=== PATIENT | female | born 1975 | race Caucasian/White ===

== ENCOUNTER 2018-04-11 12:28 | Observation (INO) | payer BC ==
--- NOTE | 2018-04-11 13:14 | EDPHY ---
H & P Stated Complaint: upper abdominal pain, pain below ribs HPI/ROS: HPI CHIEF COMPLAINT: [ ] HISTORY OF PRESENT ILLNESS: [Need 4: Location, Duration, Severity, Quality, Context, Timing Modifying Factors, Associated S&S] Past Medical History: Past Surgical History: Social History: Family History: ROS REVIEW OF SYSTEMS: 10 Systems were reviewed and negative with the exception of the elements mentioned in the history of present illness. Exam Constitutional triage nursing summary reviewed, vital signs reviewed, awake/ alert. Eyes normal conjunctivae and sclera, EOMI, PERRLA. HENT normal inspection, atraumatic, moist mucus membranes, no epistaxis, neck supple/ no meningismus, no raccoon eyes. Respiratory clear to auscultation bilaterally, normal breath sounds, no respiratory distress, no wheezing. Cardiovascular rate normal, regular rhythm, no murmur, no edema, distal pulses normal. Gastrointestinal soft, non-tender, no rebound, no guarding, normal bowel sounds, no distension, no pulsatile mass. Genitourinary no CVA tenderness. Musculoskeletal no midline vertebral tenderness, full range of motion, no calf swelling, no tenderness of extremities, no meningismus, good pulses, neurovascularly intact. Skin pink, warm, & dry, no rash, skin atraumatic. Neurologic awake, alert and oriented x 3, AAOx3, moves all 4 extremities equally, motor intact, sensory intact, CN II-XII intact, normal cerebellar, normal vision, normal speech. Psychiatric normal mood/affect. Heme/Lymph/Immune no lymphadenopathy. Differential Diagnosis: Medical Decision Making: Re-evaluation: Source: Patient - Personal History LMP (Females 10-55): Irregular Current Tetanus/Diphtheria Vaccine: Yes Current Tetanus Diphtheria and Acellular Pertussis (TDAP): Yes - Medical/Surgical History Hx Asthma: No Hx Chronic Respiratory Disease: No Hx Diabetes: No Hx Cardiac Disease: No Hx Renal Disease: No Hx Cirrhosis: No Hx Alcoholism: No Hx HIV/AIDS: No Hx Splenectomy or Spleen Trauma: No - Social History Smoking Status: Never smoked Constitutional: Initial Vital Signs Temperature (C) 36.5 C 04/11/18 12:32 Heart Rate 55 L 04/11/18 12:32 Respiratory Rate 16 04/11/18 12:32 Blood Pressure 106/51 L 04/11/18 12:32 O2 Sat (%) 98 04/11/18 12:32 O2 Delivery Mode Room Air Allergies/Adverse Reactions: No Known Allergies Allergy (Verified 05/20/12 08:47) Home Medications: Medication Instructions Recorded Miscellaneous Medical Supply [NO 1 ea MISC AD 05/20/12 HOME MEDS] Medical Decision Making - Data Points Laboratory Results: 04/11/18 13:06 POC Hgb 17.0 gm/dL H gm/dL (12.6-16.3) POC Hct 50 % H % (38-47) POC Sodium 144 mEq/L mEq/L (135-145) POC Potassium 3.8 mEq/L mEq/L (3.3-5.0) POC Chloride 106 mEq/L mEq/L (97-110) POC BUN 19 mg/dL mg/dL (7-23) POC Creatinine 0.9 mg/dL mg/dL (0.6-1.0) POC Glucose 84 mg/dL mg/dL (70-100) Point of Care Test Results: Chemistry 04/11/18 13:06 POC Sodium 144 mEq/L mEq/L (135-145) POC Potassium 3.8 mEq/L mEq/L (3.3-5.0) POC Chloride 106 mEq/L mEq/L (97-110) POC BUN 19 mg/dL mg/dL (7-23) POC Creatinine 0.9 mg/dL mg/dL (0.6-1.0) POC Glucose 84 mg/dL mg/dL (70-100) ISTAT H&H 04/11/18 13:06 POC Hgb 17.0 gm/dL H gm/dL (12.6-16.3) POC Hct 50 % H % (38-47) Departure - Departure Referrals: Chiqui Smith MD [Primary Care Provider] - As per Instructions
[2018-04-11] MEDS ORDERED: KETOROLAC 15 MG/1 ML SDV IVP ONE (13:15)
--- NOTE | 2018-04-11 13:19 | EDPHY ---
H & P Stated Complaint: upper abdominal pain, pain below ribs Time Seen by Provider: 04/11/18 13:15 HPI/ROS: CHIEF COMPLAINT: Abdominal pain since this morning HISTORY OF PRESENT ILLNESS: 42-year-old female with no history of abdominal surgeries complaining of bilateral upper quadrant abdominal pain since 8:00 a.m. Today. No nausea or vomiting. Bowel movements normal. No trauma. No urinary abnormality. No fever no chills. No trauma. No urinary abnormality. REVIEW OF SYSTEMS: 10 systems reviewed and negative with the exception of the elements mentioned in the history of present illness PAST MEDICAL & SURGICAL HISTORY: No history of abdominal surgeries SOCIAL HISTORY: Nonsmoker PHYSICAL EXAM (Prior to examination, patient consented to physical exam, hands were washed and my usual and customary physical exam procedures followed) 1) GENERAL: Well-developed, well-nourished, alert and oriented. Appears uncomfortable, sitting upright on the bed leaning against her , hesitant to lay down 2) HEAD: Normocephalic, atraumatic 3) HEENT: Pupils equal, round, reactive to light bilaterally. Sclera anicteric. Nasopharynx, oropharynx, clear, no lesions. Moist mucous membranes. Ears bilaterally with normal tympanic membranes. 4) NECK: Full range of motion, no meningeal signs. 5) LUNGS: Clear auscultation bilaterally, no wheezes, no rhonchi, no retractions. 6) HEART: Regular rate and rhythm, no murmur, no heave, no gallop. 7) ABDOMEN: guarding abdomen, flat, diffusely tender to palpation all quadrants. , 8) MUSCULOSKELETAL: Moving all extremities, no focal areas of tenderness, no obvious trauma. No peripheral edema or discoloration. 9) BACK: No CVA tenderness, no midline vertebral tenderness, no fluctuance, no step-off, no obvious trauma, no visual or palpable abnormality. 10) SKIN: No rash, no petechiae. 11) Psychiatric: Patient is oriented X 3, there is no agitation. DIFFERENTIAL DIAGNOSIS: My differential diagnosis includes, but is not limited to, acute appendicitis, acute cholecystitis, bowel obstruction, acute pancreatitis, ovarian torsion, ectopic , gastritis, constipation The patient understands that this diagnosis is provisional and can never be 100% accurate. This is a partial list of diagnoses considered. These considerations are based on history, physical exam, past history and reassessment. - Personal History LMP (Females 10-55): Irregular Current Tetanus/Diphtheria Vaccine: Yes Current Tetanus Diphtheria and Acellular Pertussis (TDAP): Yes - Medical/Surgical History Hx Asthma: No Hx Chronic Respiratory Disease: No Hx Diabetes: No Hx Cardiac Disease: No Hx Renal Disease: No Hx Cirrhosis: No Hx Alcoholism: No Hx HIV/AIDS: No Hx Splenectomy or Spleen Trauma: No - Social History Smoking Status: Never smoked Constitutional: Initial Vital Signs Temperature (C) 36.5 C 04/11/18 12:32 Heart Rate 55 L 04/11/18 12:32 Respiratory Rate 16 04/11/18 12:32 Blood Pressure 106/51 L 04/11/18 12:32 O2 Sat (%) 98 04/11/18 12:32 O2 Delivery Mode Room Air Allergies/Adverse Reactions: No Known Allergies Allergy (Verified 05/20/12 08:47) Home Medications: Medication Instructions Recorded Miscellaneous Medical Supply [NO 1 ea MISC AD 05/20/12 HOME MEDS] Peg 3350/Na Sulf,Bicarb,Cl/KCl 1,000 ml PO ONCE #4000 ml 04/11/18 [Golytely (RX)] Medical Decision Making - Diagnostics Imaging Results: Imaging Impressions Abdomen CT 04/11/18 13:15 Impression: No CT findings for appendicitis. Long segment of colitis in the sigmoid colon. Severe constipation proximal to this throughout the colon and fecalization of stool in the distal ileum. Results called and discussed with Rodney Flores PA-C on April 11, 2018 at 1505 hours. Images reviewed myself ED Course/Re-evaluation: 1:20 p.m.: Patient declining opiate analgesia. Will obtain diagnostic studies. Will plan on CT imaging. 2:00 p.m.: Re-evaluation, awaiting chemistry and CT. She continues to complain of pain. Once again offered medication beyond the Toradol and she declines. 3:30 p.m.: Re-evaluation. Discussed her imaging. She is asymptomatic. Smiling. Sitting upright. 4:30 p.m.: Re-evaluation. Patient is sitting upright, smiling, drinking juice , laughing, appears well. She has no complaints of pain or discomfort. I discussed her imaging and reviewed her imaging results with her and her on numerous instances. The patient was also seen examined by Dr. Moreno Pittman in the ER. We discussed her colitis findings in the importance of following up with Gastroenterology. This referral has been provided to her. Have offered hospital admission however states that she would like to go home. I will plan on discharging her with medication for constipation. 5:05 p.m.: Patient has been re-evaluated with multiple serial exams in the ER. She continues to feel progressively better while in the ER, heart rate in the 50s. Of note however is her blood pressure which has trended progressively downward. Specifically why the patient's blood pressure is trending down or is incompletely clear at this time. I recommended admission. The patient was initially declining admission. Dr. Moreno Pittman spoke with the patient her as well. Patient is agreeable ultimately with admission 5:22 p.m.: Consultation Dr. Wade Grant who will admit patient - Data Points Laboratory Results: Laboratory Results 04/11/18 13:00 04/11/18 13:00 04/11/18 04/11/18 04/11/18 13:06 13:00 13:00 WBC RBC Hgb POC Hgb 17.0 gm/dL H gm/dL (12.6-16.3) Hct POC Hct 50 % H % (38-47) MCV MCH MCHC RDW Plt Count MPV Neut % (Auto) Lymph % (Auto) [place] % (Auto) Eos % (Auto) Baso % (Auto) Nucleat RBC Rel Count Absolute Neuts (auto) Absolute Lymphs (auto) Absolute Monos (auto) Absolute Eos (auto) Absolute Basos (auto) Absolute Nucleated RBC Immature Gran % Immature Gran # POC Sodium 144 mEq/L mEq/L (135-145) Sodium 139 mEq/L mEq/L (135-145) POC Potassium 3.8 mEq/L mEq/L (3.3-5.0) Potassium 4.1 mEq/L mEq/L (3.5-5.2) POC Chloride 106 mEq/L mEq/L (97-110) Chloride 106 mEq/L mEq/L (97-110) Carbon Dioxide 19 mEq/l L mEq/l (22-31) Anion Gap 14 mEq/L mEq/L (6-14) POC BUN 19 mg/dL mg/dL (7-23) BUN 20 mg/dL mg/dL (7-23) Creatinine 0.8 mg/dL mg/dL (0.6-1.0) POC Creatinine 0.9 mg/dL mg/dL (0.6-1.0) Estimated GFR > 60 Glucose 84 mg/dL mg/dL (70-100) POC Glucose 84 mg/dL mg/dL (70-100) Calcium 10.0 mg/dL mg/dL (8.5-10.4) Total Bilirubin 1.9 mg/dL H mg/dL (0.1-1.4) Conjugated Bilirubin 0.7 mg/dL H mg/dL (0.0-0.5) Unconjugated Bilirubin 1.2 mg/dL H mg/dL (0.0-1.1) AST 40 IU/L IU/L (14-46) ALT < 6 IU/L L IU/L (9-52) Alkaline Phosphatase 97 IU/L IU/L (38-126) Total Protein 7.9 g/dL g/dL (6.3-8.2) Albumin 4.8 g/dL g/dL (3.5-5.0) Lipase 99 IU/L IU/L (23-300) Beta HCG, Qual NEGATIVE Specimen Hemolysis 118 04/11/18 13:00 WBC 6.58 10^3/uL 10^3/uL (3.80-9.50) RBC 4.94 10^6/uL 10^6/uL (4.18-5.33) Hgb 15.8 g/dL g/dL (12.6-16.3) POC Hgb Hct 46.2 % % (38.0-47.0) POC Hct MCV 93.5 fL fL (81.5-99.8) MCH 32.0 pg pg (27.9-34.1) MCHC 34.2 g/dL g/dL (32.4-36.7) RDW 13.9 % % (11.5-15.2) Plt Count 191 10^3/uL 10^3/uL (150-400) MPV 11.6 fL fL (8.7-11.7) Neut % (Auto) 68.9 % % (39.3-74.2) Lymph % (Auto) 22.5 % % (15.0-45.0) [place] % (Auto) 7.0 % % (4.5-13.0) Eos % (Auto) 0.6 % % (0.6-7.6) Baso % (Auto) 0.8 % % (0.3-1.7) Nucleat RBC Rel Count 0.0 % % (0.0-0.2) Absolute Neuts (auto) 4.54 10^3/uL 10^3/uL (1.70-6.50) Absolute Lymphs (auto) 1.48 10^3/uL 10^3/uL (1.00-3.00) Absolute Monos (auto) 0.46 10^3/uL 10^3/uL (0.30-0.80) Absolute Eos (auto) 0.04 10^3/uL 10^3/uL (0.03-0.40) Absolute Basos (auto) 0.05 10^3/uL 10^3/uL (0.02-0.10) Absolute Nucleated RBC 0.00 10^3/uL 10^3/uL (0-0.01) Immature Gran % 0.2 % % (0.0-1.1) Immature Gran # 0.01 10^3/uL 10^3/uL (0.00-0.10) POC Sodium Sodium POC Potassium Potassium POC Chloride Chloride Carbon Dioxide Anion Gap POC BUN BUN Creatinine POC Creatinine Estimated GFR Glucose POC Glucose Calcium Total Bilirubin Conjugated Bilirubin Unconjugated Bilirubin AST ALT Alkaline Phosphatase Total Protein Albumin Lipase Beta HCG, Qual Specimen Hemolysis Medications Given: Discontinued Medications Sodium Chloride (Ns) 1,000 mls @ 0 mls/hr IV ONCE ONE PRN Reason: Wide Open Stop: 04/11/18 13:53 Last Admin: 04/11/18 15:25 Dose: 1,000 mls Sodium Chloride (Ns) 1,000 mls @ 0 mls/hr IV ONCE ONE PRN Reason: Wide Open Stop: 04/11/18 17:13 Last Admin: 04/11/18 17:20 Dose: 1,000 mls Ketorolac Tromethamine (Toradol) 15 mg IVP EDNOW ONE Stop: 04/11/18 13:16 Last Admin: 04/11/18 13:31 Dose: 15 mg Point of Care Test Results: Chemistry 04/11/18 13:06 POC Sodium 144 mEq/L mEq/L (135-145) POC Potassium 3.8 mEq/L mEq/L (3.3-5.0) POC Chloride 106 mEq/L mEq/L (97-110) POC BUN 19 mg/dL mg/dL (7-23) POC Creatinine 0.9 mg/dL mg/dL (0.6-1.0) POC Glucose 84 mg/dL mg/dL (70-100) ISTAT H&H 04/11/18 13:06 POC Hgb 17.0 gm/dL H gm/dL (12.6-16.3) POC Hct 50 % H % (38-47) Departure - Departure Disposition: [facility] Inpatient Acute Clinical Impression: Colitis, Hypotension Constipation Qualifiers: Constipation type: unspecified constipation type Qualified Code(s): K59.00 - Constipation, unspecified Condition: Good
[2018-04-11 13:23] LABS: PLATELET COUNT 191 10^3/uL (150-400)
[2018-04-11] MEDS ORDERED: ONDANSETRON 4 MG/2 ML VIAL IVP ONE (13:24)
[2018-04-11] MEDS ORDERED: NS 1,000 ML IV ONE ×3 (13:52→18:36)
[2018-04-11] MEDS ORDERED: IOPAMIDOL (ISOVUE 370) 100 ML BTL IV ONE (14:04)
[2018-04-11] MEDS ORDERED: NS 1,600 ML IV ONE (17:23)
[2018-04-11] MEDS ORDERED: NS 1,000 ML IV SCH (17:30)
[2018-04-11] MEDS ORDERED: ACETAMINOPHEN 325 MG TAB PO PRN (17:30)
[2018-04-11] MEDS ORDERED: ONDANSETRON 4 MG/2 ML VIAL IVP PRN (17:30)
[2018-04-11] MEDS ORDERED: ZOLPIDEM TARTRATE 5 MG TAB PO PRN (17:30)
[2018-04-11] MEDS ORDERED: METRONIDAZOLE 500 MG/NACL/100 ML BAG IV ONE (17:57)
[2018-04-11] MEDS ORDERED: cefTRIAXone 1 GM/DEXTROSE 1 GM/50 ML BAG IV ONE (17:57)
[2018-04-11] MEDS ORDERED: MAGNESIUM HYDROXIDE 30 ML UDCUP PO PRN (20:56)
--- NOTE | 2018-04-11 20:56 | PDGENHP ---
History and Physical History and Physical: CC: Abdominal pain HISTORY: This patient comes into the ER tonight complaining of abdominal pain. Initially her pain started early this morning as a bilateral pain just below the costal margin in the upper abdomen. This was not associated with any nausea vomiting change in bowel function fever her any other symptoms that she could think of. Eventually the pain became somewhat more diffuse in the abdomen however it mostly status and upper abdominal pain. It it did not improve so if she eventually presented to the ER. Here in the ER she was assessed and had initially normal vital signs no fever, and had some blood tests that were not particularly concerning. With the ongoing pain she had a CT scan of the abdomen in the ER and there was concern about constipation and some possible sigmoid colitis. She was given some morphine which gave her good relief of pain. She has not had any pain medicine now for a few hours and has almost no pain at this point. Notably however when she was given the morphine her blood pressure dropped from 105 systolic to 85 systolic. In the ER there was concern about her being septic and she was given IV antibiotics and fluid boluses which did not lead to an increase in the blood pressure. She has never had any previous abdominal or digestive illnesses or problems and has never had abdominal pain like this. Her normal bowel function is to have a bowel movement every 1 to 3 days. She does not have any other symptoms that would suggest the possibility of hypothyroidism at this time. Overall she is very healthy and physically active and working full-time. She takes no medications, no narcotics, no street drugs, no alcohol ROS: She has noticed no menstrual for a couple of months. 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 I have reviewed the list and ordered appropriate medicines. PHYSICAL EXAMINATION: Vital Signs: Initial blood pressure 106/50, blood pressures since then have been in the mid 80s which is very close to her normal blood pressures. Pulse in the 50s, no fever, respirations normal Sieve Maker: Sinus rhythm Examination: General: alert, oriented, good mentation, relaxed; appears well nourished, No adenopathy anywhere Skin: warm, dry, good color, no rash, no jaundice HEENT: normal Neck: no mass or jvd Resps: relaxed Lungs: clear breath sounds Heart: regular, no murmur Abdomen: soft, nondistended, nontender, +BS, no mass; overall very normal abdominal exam at this time though had some tenderness in the abdomen earlier per the ER staff and patient Upper Extremities: normal Lower Extremities: no edema, warm No Bleeding or bruising Neurologic: normal speech/language, 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 She has a stomach that appears full of food, as well as colon that is full of stool throughout most of his course. There is however 1 stretch of sigmoid colon that does not appear to have much stool in it appears perhaps slightly inflamed though no surrounding tissues appear inflamed. 12 LEAD EKG: Normal 12 lead EKG other than sinus bradycardia which is probably normal for her ASSESSMENT: * Acute abdominal pain in the left and right upper abdomen seems to currently be resolved * Constipation by symptoms and by CT scan * 1 segment of sigmoid colon suggestive of a possible mild colitis, however no fever, no diarrhea, no bleeding and no pain or tenderness in that particular area, no other inflammatory symptoms and other body parts, nothing really suggestive of infection * I do not think she has sepsis, and her BP is her usual perhaps slightly lower after narcotic PLANS: * observe overnight * begin laxative/enema * avoid narcotic as able * I have asked Dr Blair to see her in am * clear liquid diet in case of need for endosc or other exams I have reviewed the patient's case in detail with Dr. Senait Blair
[2018-04-11] MEDS ORDERED: MELATONIN 3 MG TAB PO SCH (21:00)
--- NOTE | 2018-04-11 21:57 | CPEKG ---
Test Reason : OPEN Blood Pressure : / mmHG Vent. Rate : 044 BPM Atrial Rate : 043 BPM P-R Int : 123 ms QRS Dur : 092 ms QT Int : 525 ms P-R-T Axes : 011 034 061 degrees QTc Int : 450 ms Sinus bradycardia Low voltage, extremity and precordial leads Confirmed by Moreno Pittman ([id number]) on 04/11/2018 9:56:59 PM Referred By: Confirmed By:Moreno Pittman
[2018-04-12 08:21] VITALS: BP 81/57
--- NOTE | 2018-04-12 12:23 | PDDCSUM ---
Discharge Summary Discharge Summary: Date of Admission: 04/11/2018 Date of Discharge: 04/12/2018 Studies: Abdominal CT Discharge Diagnoses: 1. Acute abdominal pain, likely related to 2. Severe constipation 3. Sinus bradycardia 4. Physiologic hypotension 5. Mild unconjugated hyperbilirubinemia, suspect Gilclemente's Brief Hospital Course: 42yo healthy F presented with acute onset lower abdominal pain without n/v/d. She hadn't had a bowel movement in a few days. An abdominal CT showed severe constipation and possible sigmoid colitis. She did not have diarrhea, fever, or elevated WBC count making colitis an unlikely diagnosis. She was treated with an enema and had a bowel movement and was passing flatus prior to discharge. She was tolerating PO. The main reason she required observation overnight was for monitoring of her low HR and BP. Her HR was in the 40s on admission and dipped into the upper 30s while sleeping overnight. ECG and telemetry shows a sinus rhythm without AV block or pauses. Her SBP remained in 80-90s. She is an extremely active woman with a small stature. She routinely hikes "14ers." Review of a prior clinic visit shows similar vital signs. She is completely asymptomatic related to these. I suspect that her bradycardia and low BP are physiologic and normal for her and does not require additional evaluation at this time. Medications: Please refer to EMR for complete list. I gave her suggestions for [id number] stool softeners and laxatives. Follow Up Plan: 1. Continue to follow with PCP 2. Consider 2D echocardiogram to evaluate very faint systolic murmur Physical Exam: Vitals reviewed. Alert and oriented, bradycardic with 2/6 systolic murmur over left chest without radiation, lungs clear, abdomen soft, no rashes, no edema.
--- NOTE | 2018-04-12 13:56 | ASDISCHSUM ---
Discharge Information Plan Status:Home with No Needs Medically Cleared to Leave:04/11/2018 Discharge Date:04/11/2018 CM D/C Disposition:Home, Routine, Self-Care ADT D/C Disposition:Home, Routine, Self-Care Projected Discharge Date:04/11/2018 Transportation at D/C:Family Discharge Delay Reason: Follow-Up Date:04/11/2018 Discharge Slot: Final Diagnosis: Placement Information Patient Contact Information Contact Name:DIANE Relationship: Address:[address] Work Phone: City:[place] Alternate Phone: State/Zip Code:[place] [address] Email: Financial Information Financial Class:BCOP Primary Plan Desc: OUT OF STATE [facility] Primary Plan Number:[id number] Secondary Plan Desc: Secondary Plan Number: Assessment Information Case Management Discharge Plan Note Case Management Discharge Discharge Order Complete? Answers: Yes Patient to Obtain Answers: Independently Medications Transportation Arranged Answers: Family/Friends Discharge Comments Notes: 04/12/2018 case Management Note Pt to discharge independent with follow up as directed. CAGE completed. Date Signed: 04/12/2018 01:54 PM Electronically Signed By:Stephanie Chand RN LACE LACE Length of stay for Answers: Less than 1 day current admission Acuity / Level of Answers: No Care: Did the patient have an inpatient admission? # of Emergency department Answers: 1-2 visits in the last 6 months Score: 1 Date Signed: 04/12/2018 01:55 PM Electronically Signed By:Stephanie Chand RN Intervention Information
== END 2018-04-12 13:05 | disposition home or self-care (01) ==
LOC: F2N 20:37
PROVIDERS: ADMIT Internal Medicine; ATTEND Internal Medicine
DX: R10.9 Unspecified abdominal pain (principal); K59.00 Constipation, unspecified; R00.1 Bradycardia, unspecified; I95.9 Hypotension, unspecified; E80.6 Other disorders of bilirubin metabolism; E86.9 Volume depletion, unspecified
CPT/HCPCS: 74177; 93005; 96361; 96365; 96367; 96375; 99285; G0378; 82435-PO; 82565-PO; 82947-PO; 84132-PO; 84295-PO; 84520-PO; 85014-ER; J0696; J1885; Q9967